=== PATIENT | male | born 1950 | race Caucasian/White ===

== ENCOUNTER 2021-09-18 21:00 | Inpatient (IN) | payer OTHER ==
[2021-09-18] MEDS ORDERED: CALCIUM CHLORIDE 1 GM/10 ML *DISP.SYRIN ONE (21:09)
[2021-09-18 21:39] LABS: BASO % 0.5 % (0-2.0); EOS % 0.3 % (0-4.5); HEMOGLOBIN 12.7 GM/dL (11.7-16.9); MCH 30.2 pg (25.7-33.7); MCHC 32.6 g/dl (32.0-35.9); MEAN CELL VOLUME 92.8 fl (80-96); MEAN PLT VOLUME 7.9 fl (7.5-11.1); MONO % 4.9 % (3.8-10.2); NEUT % 78.3 % (42.8-82.8); PLATELET COUNT 149 10^3/uL (134-434); RDW 15.2 % (11.9-15.9); WHITE BLOOD COUNT 11.5 K/mm3 (4.0-10.0)
[2021-09-18 21:41] VITALS: BMI 41.8
[2021-09-18] MEDS ORDERED: VASOPRESSIN 40 UNITS/100 ML BAG IV SCH (21:45)
[2021-09-18] MEDS: VASOPRESSIN 40 UNITS/100 ML BAG IV SCH (21:45)
[2021-09-18 21:46] LABS: VENOUS BASE EXCESS -12.3 mmol/L (-2-2); VENOUS O2 SATURATION 74.1 % (70-80)
[2021-09-18 21:48] LABS: VENOUS PH 7.039 (7.310-7.410)
[2021-09-18 21:49] LABS: VENOUS PCO2 74.1 mmHg (38-52)
[2021-09-18 22:03] LABS: CHLORIDE 91 mmol/L (98-107); SODIUM 132 mmol/L (136-145)
[2021-09-18 22:04] LABS: INR 1.25 (0.83-1.09); PROTHROMBIN TIME (PATIENT) 14.6 SEC (9.7-13.0)
[2021-09-18 22:06] LABS: ANION GAP 17 MMOL/L (8-16); BLOOD UREA NITROGEN 9.5 mg/dL (7-18); CALCIUM 11.4 mg/dL (8.5-10.1); CO2 23 mmol/L (21-32); LIPASE 124 U/L (73-393); MAGNESIUM 2.6 mg/dL (1.8-2.4)
[2021-09-18 22:07] LABS: ACTIVATED PTT 48.5 SECONDS (25.2-36.5)
[2021-09-18 22:09] LABS: CREATININE 1.9 mg/dL (0.55-1.3); SGOT/AST 62 U/L (15-37)
[2021-09-18 22:11] LABS: TOT PROT 5.4 g/dl (6.4-8.2)
[2021-09-18 22:12] LABS: ALK PHOS 126 U/L (45-117)
[2021-09-18 22:24] LABS: ANISOCYTOSIS 2+; MACROCYTOSIS 1+; PLATELET ESTIMATE DECREASED
[2021-09-18 22:27] LABS: LACTIC ACID 12.6 mmol/L (0.4-2.0)
[2021-09-18 22:30] LABS: BILIRUBIN,TOTAL 0.3 mg/dL (0.2-1); GLUCOSE,RANDOM 433 mg/dL (74-106); PHOSPHOROUS 10.9 mg/dL (2.5-4.9); SGPT/ALT 71 U/L (13-61)
[2021-09-18] MEDS ORDERED: PROPOFOL 1,000,000 MCG/100 ML VIAL ONE (23:30)
[2021-09-19 00:15] LABS: ARTERIAL BLD GAS O2 SATURATION 99.5 % (95-98); ARTERIAL BLOOD GAS BASE EXCESS -5.8 mmol/L (-2-2); ARTERIAL BLOOD GAS PO2 246.2 mmHg (80-100); ARTERIAL BLOOD GAS pH 7.309 (7.350-7.450)
[2021-09-19 00:17] LABS: ALLENS TEST POSITIVE
[2021-09-19 00:19] LABS: VENT MODE A/C; VENT RATE 15
[2021-09-19 01:39] LABS: EPI CELLS 6 /uL (0-25.1); HYALINE CASTS 0 /uL (0-3.1); PH,URINE 7.5 (5.0-8.0); URINE APPEARANCE CLEAR; URINE BACTERIA 2 /uL (0-1359); URINE BILIRUBIN NEGATIVE (NEGATIVE); URINE COLOR YELLOW; URINE GLUCOSE (UA) 2+ (NEGATIVE); URINE KETONE NEGATIVE (NEGATIVE); URINE LEUK ESTERASE NEGATIVE (NEGATIVE); URINE NITRITE NEGATIVE (NEGATIVE); URINE PROTEIN 2+ (NEGATIVE); URINE RBC 54 /uL (0-23.9); URINE UROBILINOGEN 0.2 mg/dL (0.2-1.0); URINE WBC 2 /uL (0-25.8)
[2021-09-19] MEDS ORDERED: NOREPINEPHRINE D5W PREMIX 16,000 MCG/500 ML BAG IVPB SCH (02:15)
[2021-09-19 03:26] LABS: LACTIC ACID 4.6 mmol/L (0.4-2.0)
[2021-09-19] MEDS ORDERED: SODIUM CHLORIDE 1,000 ML IV SCH ×2 (04:15→05:00)
[2021-09-19] MEDS ORDERED: HEPARIN NA (PORCINE) 5,000 UNITS/ML 1ML VIAL IVPUSH PRN ×2 (04:36)
[2021-09-19] MEDS ORDERED: ASPIRIN 325 MG TABLET PO ONE (04:37)
[2021-09-19] MEDS ORDERED: HEPARIN - 25,000 UNIT in SODIUM CHLORIDE 495 ML IV SCH (04:45)
[2021-09-19] MEDS ORDERED: PT OWN MED DRAWER 7, Y5N ONE (04:57)
[2021-09-19] MEDS ORDERED: SODIUM CHLORIDE 1,000 ML IV STA ×3 (05:23→06:47)
[2021-09-19] MEDS: MUPIROCIN 2% TOPICAL OINTMENT FOR DECOLONIZATION NS SCH ×2 (05:27→09:10)
[2021-09-19] MEDS: VASOPRESSIN 40 UNITS/100 ML BAG IV SCH (06:00)
[2021-09-19] MEDS ORDERED: HEPARIN NA (PORCINE) 5,000 UNITS/ML 1ML VIAL SQ SCH (06:00)
[2021-09-19] MEDS: INSULIN SLIDING SCALE (NOVOLOG) 1 VIAL SQ SCH ×2 (06:41→12:22)
[2021-09-19] MEDS ORDERED: PHENYLEPHRINE HCL 10 MG/1 ML SINGLE DOSE VIAL ONE (07:38)
[2021-09-19 07:57] LABS: HEMATOCRIT 39.2 % (35.4-49); HEMOGLOBIN 13.2 GM/dL (11.7-16.9); MCH 30.7 pg (25.7-33.7); MCHC 33.7 g/dl (32.0-35.9); MEAN CELL VOLUME 91.1 fl (80-96); MEAN PLT VOLUME 7.6 fl (7.5-11.1); PLATELET COUNT 141 10^3/uL (134-434); RDW 14.9 % (11.9-15.9)
[2021-09-19 08:05] LABS: LACTIC ACID 5.7 mmol/L (0.4-2.0)
[2021-09-19] MEDS ORDERED: PHENYLEPHRINE NS PREMIX 50,000 MCG/500 ML BAG CVP SCH (09:00)
[2021-09-19] MEDS ORDERED: cefTRIAXone SODIUM 1 GM VIAL ONE (09:36)
[2021-09-19] MEDS ORDERED: DEXTROSE 5%-WATER - 50 ML IVPB ONE (09:36)
[2021-09-19] MEDS ORDERED: methylPREDNISolone NA SUCC 125 MG/2 ML VIAL IVPUSH ONE ×2 (09:40)
[2021-09-19 09:44] LABS: ALBUMIN 1.7 g/dl (3.4-5.0); BILIRUBIN,TOTAL 1.3 mg/dL (0.2-1); BLOOD UREA NITROGEN 19.4 mg/dL (7-18); CALCIUM 7.6 mg/dL (8.5-10.1); CREATININE 2.4 mg/dL (0.55-1.3); MAGNESIUM 2.7 mg/dL (1.8-2.4); PHOSPHOROUS 7.2 mg/dL (2.5-4.9); TOT PROT 4.2 g/dl (6.4-8.2)
[2021-09-19] MEDS ORDERED: ENOXAPARIN NA (PORCINE) 40 MG/0.4 ML DISP.SYRIN SQ SCH (10:00)
[2021-09-19] MEDS ORDERED: CEFTRIAXONE 1 GM in DEXTROSE 5%-WATER - 50 ML IVPB SCH (10:00)
[2021-09-19] MEDS ORDERED: CLOPIDOGREL BISULFATE 75 MG TABLET (FP) PO SCH (10:00)
[2021-09-19] MEDS ORDERED: PANTOPRAZOLE SODIUM 40 MG VIAL IVPUSH SCH (10:00)
[2021-09-19] MEDS ORDERED: LACTATED RINGERS SOLUTION 1000 ML INFUS.BAG IV ONE (10:09)
[2021-09-19 10:42] VITALS: TEMP 92.2
[2021-09-19 12:24] VITALS: BP 119/78; PULSE 73
[2021-09-19] MEDS ORDERED: morphine CARPU-JECT 2 MG/1 ML DISP.SYRIN IVPUSH ONE (12:45)
[2021-09-19] MEDS ORDERED: morphine CARPU-JECT 2 MG/1 ML DISP.SYRIN SQ ONE (12:45)
[2021-09-19] MEDS ORDERED: morphine SULFATE 4 MG/ML VIAL IVPUSH ONE (12:45)
[2021-09-19] MEDS ORDERED: morphine SULFATE 4 MG/ML VIAL ONE (12:59)
[2021-09-19 14:35] LABS: ANISOCYTOSIS 1+; MACROCYTOSIS 0; PLATELET ESTIMATE NORMAL
[2021-09-19] MEDS ORDERED: CHLORHEXIDINE GLUCONATE 4% CLEANSER FOR DECOLONIZATION TP SCH (22:00)
[2021-09-19] MEDS ORDERED: ATORVASTATIN CA 40 MG TABLET (FP) PO SCH (22:00)
[2021-09-20] MEDS ORDERED: ASPIRIN 81 MG CHEWABLE TABLETS PO SCH (10:00)
== END 2021-09-19 13:30 | disposition expired | DRG 208 ==
LOC: JER 21:00 → JICU 23:46
PROVIDERS: ADMIT Internal Medicine Pulmonary Disease; ATTEND Internal Medicine Pulmonary Disease
PROC: 05HN33Z Insertion of Infusion Device into Left Internal Jugular Vein, Percutaneous Approach (ICD-10-PCS; 2021-09-18)
PROC: B544ZZA Ultrasonography of Left Jugular Veins, Guidance (ICD-10-PCS; 2021-09-18)
PROC: 5A1935Z Respiratory Ventilation, Less than 24 Consecutive Hours (ICD-10-PCS; principal; 2021-09-19)
PROC: 0BH17EZ Insertion of Endotracheal Airway into Trachea, Via Natural or Artificial Opening (ICD-10-PCS; 2021-09-19)
PROC: 5A12012 Performance of Cardiac Output, Single, Manual (ICD-10-PCS; 2021-09-19)
DX: J96.01 Acute respiratory failure with hypoxia (principal); N17.9 Acute kidney failure, unspecified; E87.2 Acidosis; J96.02 Acute respiratory failure with hypercapnia; I49.01 Ventricular fibrillation; I46.9 Cardiac arrest, cause unspecified; I11.0 Hypertensive heart disease with heart failure; E11.9 Type 2 diabetes mellitus without complications; J44.9 Chronic obstructive pulmonary disease, unspecified; I50.9 Heart failure, unspecified; E66.9 Obesity, unspecified; I35.1 Nonrheumatic aortic (valve) insufficiency; I25.10 Atherosclerotic heart disease of native coronary artery without angina pectoris; F17.210 Nicotine dependence, cigarettes, uncomplicated; I95.9 Hypotension, unspecified; R74.01 Elevation of levels of liver transaminase levels; Z68.32 Body mass index [BMI] 32.0-32.9, adult; Z95.1 Presence of aortocoronary bypass graft
CPT/HCPCS: 36415; 36600; 71045-TC-FY; 80053; 81003; 82550; 82553; 82803; 82962; 83605; 83690; 83735; 84100; 84484; 85025; 85610; 85730; 86850; 86900; 86901; 87040; 87077; 87086; 93005; 93010; 94002; 99291; C9803; J1250; J1644; J3490; U0003; U0005